=== PATIENT | male | born 1990 | race Two or more races ===

== ENCOUNTER 2023-10-17 11:14 | Observation (INO) ==
--- NOTE | 2023-10-17 11:31 | ED Triage Note ---
Date of Service October 17, 2023 Provider in Triage Author: Mei Estrella History of Present Illness This patient was briefly evaluated while in triage. An abbreviated physical exam was performed. This patient is a 33-year-old Male who presents to the ED for evaluation of reported left leg edema, no injury. Pt no personal hx blood clot but family history. Pain with walking. Physical Exam CONSTITUTIONAL: in no acute pain or distress, resting comfortably SKIN: pink, warm, dry CARDIAC: regular rate and rhythm RESPIRATORY: in no respiratory distress, lungs clear to auscultation ABDOMEN: no TTP MSK: 5/5 strength throughout NEURO: no neuro deficits, alert and oriented x 3 Initial orders for labs and / or imaging were placed and patient was placed in the waiting area until a bed is available. Please see further documentation for the full ED course.
--- NOTE | 2023-10-17 11:41 | Emergency Department Note ---
Impression & Plan Left leg swelling, DVT (deep venous thrombosis) ED Provider Note NAME: MINOR [id number] SAIRA AGE: 33 SEX: M : 1990 ARRIVES VIA: Walk-In INFORMANT: [Patient] ED PROVIDER(S): [Michael Gordon MD] CHIEF COMPLAINT: Leg pain HISTORY OF PRESENT ILLNESS: The patient is a 33-year-old male who states that for 5 days, he has noticed left calf pain and left leg swelling. The area behind his left knee feels full. There has been no erythema, no injury. No numbness or tingling. The patient states that he has never had a DVT. He is not short of breath. No fever or chills. The [facility] is [facility] He was sent for evaluation. The patient does carry history of hypertension, although, he is no longer taking medications for this diagnosis. PMHx/PSHx/Social Hx: See Below PHYSICAL EXAM: GENERAL: Patient is in no acute distress. EXTREMITIES: No cyanosis, full range of motion of all the joints without pain or difficulty. The patient's left lower extremity is edematous compared to the right. There is no contusion, no hematoma. No evidence for distal left lower extremity neurovascular compromise. NEUROLOGIC: Oriented x 3, no acute motor or sensory deficits, no focal weakness. DIFFERENTIAL DIAGNOSIS: Hematoma, Neil's cyst, cellulitis, sprain, strain, DVT, among others. EMERGENCY DEPARTMENT PROCEDURES: MEDICAL DECISION MAKING: There is a mild leukocytosis, this could be consistent with infection or the stress of his current situation. There was a normal hemoglobin and platelet count. No coagulopathy. No renal failure or significant electrolyte abnormalities. Left leg ultrasound shows an extensive DVT. On exam, the patient did have left lower extremity edema. There was no cellulitis. He was not short of breath. He was not tachycardic or hypoxic. The patient is in need of a hospital stay. Given the extent of the DVT, further workup, IV anticoagulation is needed. I spoke with the patient and the guards, I spoke with case management, the on- call hospitalist was consulted. Prior/Outside records/notes reviewed: Today's senior living note describing his presentation and the need for transfer to our hospital. Imaging/x-ray results per my interpretation: Chronic Medical/Social conditions affecting care: Currently incarcerated Care/Management discussed with: Case management, the on-call hospitalist. Level of care consideration(s): After review of the information above and other included data: --I believe the patient requires escalation of care to admission DISPOSITION: Admission Past Med/Surg History Medical History Hypertension Social History Smoking Status: Current every day smoker Preferred Language: [place] Feels Safe at Home: Yes Allergies Allergies Allergy/AdvReac Type Severity Reaction Status Date / Time No Known Allergies Allergy Verified 10/17/23 15:48 Home Meds Home Medications Medication Instructions Recorded Confirmed No Known Home Medications 10/17/23 10/17/23 Results & Data (ED) Vital Signs Vital Signs - 24 hr 10/17/23 11:30 10/17/23 14:12 Temperature 36.6 C Temperature Source Temporal Artery Scan Pulse Rate 81 Pulse Rate [Apical] 82 Pulse Rhythm Regular Pulse Rhythm [Apical] Regular Pulse Strength Normal Pulse Strength [Apical] Normal Respiratory Rate 20 19 Respiratory Effort / Characteristics Non-Labored Spontaneous Non-Labored Spontaneous Respiratory Depth Normal Normal Respiratory Pattern Regular Regular Blood Pressure 159/98 H Blood Pressure [Right Arm] 139/70 Blood Pressure Mean 118 Blood Pressure Mean [Right Arm] 93 Blood Pressure Position Sitting Pulse Oximetry 98 98 Oxygen Delivery Method Room Air Room Air Sepsis Recent Fever Within 48 Hours No Sepsis New/Unexplained Change in Mental Status No Sepsis Action Taken by Nursing No Action Required Home Medications Current Medication List: was personally reviewed by me Laboratory Data Attestation: I reviewed the patient's lab results. 10/17/23 14:08 10/17/23 15:33 Lab Results 10/17/23 Range/Units 14:08 WBC 11.18 H (4.8-10.8) K/ul RBC 5.17 (4.70-6.10) M/uL Hgb 15.7 (14.0-18.0) g/dl Hct 47.2 (42.0-52.0) % MCV 91.3 (80.0-100.0) fL MCH 30.4 (25.0-34.0) pg MCHC 33.3 (32.0-36.0) g/dL RDW Std Deviation 39.6 (36.4-46.3) fL RDW Coeff of Mason 11.9 (11.5-14.5) % Plt Count 241 (130-400) K/uL MPV 9.4 (9.4-12.4) fL PT Cancelled INR Cancelled APTT Cancelled PTT Ratio Cancelled Sodium 140 (136-145) mmol/L Potassium TNP Chloride 106 (98-107) mmol/L Carbon Dioxide 26 (21-32) mmol/L Anion Gap 8 (3-11) BUN 13 (6-23) mg/dl Creatinine 0.99 (0.6-1.4) mg/dl Est Cr Clr Drug Dosing 120.5 ml/min Est GFR ( Amer) 115.5 ml/min Est GFR (Non-Af Amer) 99.7 ml/min BUN/Creatinine Ratio 13.1 (10-20) Glucose 76 (70-99(Fasting)) mg/dl Calcium 9.4 (8.6-10.3) mg/dl Administered Medications Heparin Sodium/Dextrose (Heparin Sodium/Dextrose) 25,000 units in 500 mls @ 29 mls/hr IV .[id number]; Protocol Stop: 11/16/23 15:14 Last Admin: 10/17/23 15:42 Dose: 1,450 units/hr, 29 mls/hr Documented By: JESUSITA Co-signed By: MARCELLE Discontinued Medications Heparin Sodium (Porcine) (Heparin Sod (Porcine) 1000 Unit/Ml) 6,000 units IV NOW ONE Stop: 10/17/23 15:05 Last Admin: 10/17/23 15:41 Dose: 6,000 units Documented By: JESUSITA Co-signed By: MARCELLE Heparin Sodium/Dextrose (Heparin Iv Adult Wt-Based Standard W/ Initial Bolus Protocol) 1 each IV NOW STA; Protocol Stop: 10/17/23 14:50 Last Admin: 10/17/23 15:47 Dose: Not Given Documented By: JESUSITA Ioversol (Optiray 320 125ml) 119 ml IV ONCE ONE Stop: 10/17/23 16:09 Last Admin: 10/17/23 16:08 Dose: 119 ml Documented By: NOÉ Miscellaneous Information (Patient's Allergy Info Needs Entered) 1 each N/A NOW STA Stop: 10/17/23 14:53 Last Admin: 10/17/23 15:48 Dose: 1 each Documented By: [facility] Imaging Data Radiologist's Impression: Venous Doppler Study 10/17/23 11:31 US venous doppler LE LT CLINICAL HISTORY: Eval for DVT TECHNIQUE: Left lower extremity real-time compression venous ultrasound with Color Doppler imaging. Utilizing real-time ultrasonic imaging multiple real time high-resolution ultrasonic images with compression and noncompression maneuvers of the deep venous system in addition to color doppler imaging were performed from the common femoral vein through the proximal calf veins. COMPARISON: None available at the time of this dictation. FINDINGS/IMPRESSION: There is extensive deep venous thrombus extending from the proximal femoral vein through the calf veins and a branch from the popliteus vein. ACT 112: Negative or not required by law. Electronically signed by: Rolando Rawls M.D. 10/17/2023 1:[address] 10/17/23 14:18 CT abdomen pelvis veno w con CT DOSE: 1591.05 mGy.cm CLINICAL HISTORY: Extensive left DVT . Evaluate for iliac involvement. TECHNIQUE: Multiaxial CT images of the abdomen were performed following the intravenous administration of contrast to evaluate the major venous structures. 3-D/maximal intensity projection images in the sagittal and coronal planes were performed at the workstation by the radiologist for the CTA portion of the examination. A dose lowering technique was utilized adhering to the principles of ALARA. COMPARISON STUDY: Left leg venous Doppler 10/17/2023. FINDINGS: The lung bases are clear. No pneumoperitoneum. No pneumatosis. No acute fractures. There are right lower lobe segmental/subsegmental pulmonary emboli best seen image 1. No evidence for right-sided heart strain. The iliac veins and IVC appear patent. Thrombus is seen within the left superficial femoral vein on image 429. The bilateral common femoral veins are patent. The bladder is mildly distended. No bladder wall thickening. No pelvic free fluid or pelvic lymphadenopathy. Normal caliber abdominal aorta. No retroperitoneal lymphadenopathy. There is a single prominent anterior pericardial lymph node on image 24 measuring 12 mm no hepatic or splenic masses. The gallbladder, pancreas, and adrenal glands are unremarkable. Normal kidneys. No hydronephrosis. The main portal vein is patent. No bowel wall thickening or obstruction. A few colonic diverticula. No evidence for acute diverticulitis. Normal appendix. IMPRESSION: 1. The left superficial femoral vein thrombosis again noted. 2. The iliac veins and IVC appear patent. 3. Right lower lobe segmental/subsegmental pulmonary emboli. 4. A single mildly enlarged anterior pericardial lymph node. [address] follow-up recommended to ensure stability/resolution. ACT 112: Positive. There are findings on this exam that require communication between the performing entity and the patient following Patient Test Result Information Act ([place] Act 112) guidelines. Electronically signed by: Lalo Escobar M.D. 10/17/2023 4:37 PM Discharge Plan Visit Data Chief Complaint: Leg Injury/Pain Stated Complaint: LEFT LEG SWELLING ED Provider: Michael Gordon Discharge Problem: Left leg swelling, DVT (deep venous thrombosis) Patient Disposition: Admitted As Inpatient Condition: Good Discharge Instructions Interventions: ED Discharge Assessment Last Done: 10/17/23 16:59 Discharge Problem: DVT (deep venous thrombosis) Qualifiers: DVT location: lower extremity Affected thrombotic vein of extremity: u nspecified vein of extremity Chronicity: acute Laterality: left Qualified Code(s): I82.402 - Acute embolism and thrombosis of unspecified deep veins of left lower extremity
--- NOTE | 2023-10-17 13:31 | Ultrasound Report ---
US venous doppler LE LT CLINICAL HISTORY: Eval for DVT TECHNIQUE: Left lower extremity real-time compression venous ultrasound with Color Doppler imaging. U tilizing real-time ultrasonic imaging multiple real time high-resolution ultrasonic images with compr ession and noncompression maneuvers of the deep venous system in addition to color doppler imaging we re performed from the common femoral vein through the proximal calf veins. COMPARISON: None available at the time of this dictation. FINDINGS/IMPRESSION: There is extensive deep venous thrombus extending from the proximal femoral vein through the calf vei ns and a branch from the popliteus vein. ACT 112: Negative or not required by law. Electronically signed by: Rolando Rawls M.D. 10/17/2023 1:29 PM
--- NOTE | 2023-10-17 14:16 | History & Physical Report ---
Date of Service October 17, 2023 Assessment & Plan (1) Pulmonary embolism: Plan: Left calf pain and swelling began on Wednesday 10/11 Left lower extremity DVT revealed extensive DVT in the proximal femoral vein through the calf veins No recent trauma to the leg No hx of clots/DVTs Appears to be unprovoked; in the setting of everyday e-cigarette smoking; former tobacco cigarette smoker; 1/[address] venogram of the abdomen/pelvis ordered to assess for clot extension above the femoral vein Positive for RLL segmental subsubsegmental PE; clinically, no SOB, cough, or pleuritic CP Will put in for chest CTA in the morning Given family history, and unprovoked DVT/PE, will order hypercoagulable panel Echocardiogram ordered, pending Troponin ordered, pending Heparin IV standard dose with bolus started in the ED Acetaminophen as needed for pain A.m. CBC, BMP, mag (2) Left femoral vein DVT: Plan Disposition: Admit to [facility] telemetry Full code Regular diet VTE PPx: Heparin IV History of Present Illness Chief Complaint: Left leg swelling/pain Primary Care Provider: AGUSTINA Dozier is a 33-year-old male without significant PMH. He presented for left calf pain that first began on Wednesday 10/11. Patient began feeling muscle cramps in his left leg on Tuesday night, then woke up on Tuesday and could barely move it. He thought that he was having a sore muscle, but denies any recent strenuous exercise or injury/trauma to the leg. Leg pain and swelling worsened throughout the week, and by Sunday 10/15, patient was almost in tears with how painful it was. He rates the left lower leg pain as 9/10 constant pain that feels like his calf muscle is "ripping apart". He has tried taking ibuprofen, but this does not help. The pain is located specifically in his left calf, and does not radiate above the knee, or below the ankle. He denies any redness, but does note swelling. No personal history of blood clots, but he does note his grandmother had a history of blood clots. Patient does not take any medicine on a daily basis. He does note that he was sitting crosslegged around 3 weeks ago, and his left leg went numb. No numbness or tingling in the past week. No chest pain, pleuritic CP, or shortness of breath. Patient is a current everyday e-cig arette smoker; half a cigarette per day (which is equivalent to 1/2 PPD); former tobacco cigarette smoker. NKDA. Patient's vitals are stable at time of admission; SpO2 98% on RA. ED course: ROS: Patient endorses chills, and left calf pain/swelling. Patient denies fever, sweating, dizziness/lightheadedness, DALEY, chest pain, pleuritic CP, SOB, cough, hemoptysis, abdominal pain, N/V/D, or numbness/ tingling in the leg. 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 Current Living Situation Comment: [facility] Other Information That Helps Us Care for You: No Feels Safe at Home: Yes Safety Concerns: Feels Safe At This Time Review of Systems Review of Systems: See HPI above Physical Exam Physical Exam: General: no acute distress; non-toxic appearing; well-nourished; cooperative; 98% SpO2 on RA HEENT: normocephalic, atraumatic; no scleral icterus; PERRLA; moist mucus membrane; vision and hearing grossly intact Neck: supple; no lymphadenopathy; trachea midline Skin: warm, dry without signs of tenting; no cyanosis; no rashes, bruising, lesions, or erythema noted CV: chest wall NTP; RRR; S1/S2 normal; no murmurs/rubs/gallops; pulses intact and symmetric at radial, DP, and PT Lungs: no acute respiratory distress; symmetrical chest wall expansion; clear breath sounds across all lung [place] w/o adventitious sounds; no wheezing ABD: Soft, NTP; BS present; no rebound/guarding; no distention MSK: no tics or fasciculations; significant swelling of the left calf when compared to the right; nonerythematous; left calf and medial left ankle are TTP Neuro: A&Ox3; normal mood and affect; fluent speech; no focal deficits; sensation grossly intact in the LEs b/l Results & Data Results & Data Vital Signs (Past 12 Hours) Vital Signs Temp Pulse Pulse Resp BP BP Pulse Ox 10/17/23 14:12 82 19 139/70 98 10/17/23 11:30 36.6 C 81 20 159/98 H 98 O2 Del Method 10/17/23 14:12 Room Air 10/17/23 11:30 Room Air Diagnostic Findings Venous Doppler Study 10/17/23 11:31 US venous doppler LE LT CLINICAL HISTORY: Eval for DVT TECHNIQUE: Left lower extremity real-time compression venous ultrasound with Color Doppler imaging. Utilizing real-time ultrasonic imaging multiple real time high-resolution ultrasonic images with compression and noncompression maneuvers of the deep venous system in addition to color doppler imaging were performed from the common femoral vein through the proximal calf veins. COMPARISON: None available at the time of this dictation. FINDINGS/IMPRESSION: There is extensive deep venous thrombus extending from the proximal femoral vein through the calf veins and a branch from the popliteus vein. ACT 112: Negative or not required by law. Electronically signed by: Rolando Rawls M.D. 10/17/2023 1:29 PM Code Status & VTE Plan Code Status Full code VTE Prophylaxis Plan VTE Prophylaxis will be ordered: Yes Supervising Physician Co-Signing Physician Notes I personally saw and examined the patient. I independently reviewed the labs, imaging, problem list, medication list, past medical history and family history. I verified all reis points and agree with Lalo Everett PA-C with the following exceptions and/or additions: 33-year-old male presents to the ER with left calf pain since Tuesday with associated swelling. He has a significant family history of blood clots with his grandmother dying at an early age from pulmonary emboli. He has never had a DVT or pulmonary emboli in the past. He smokes daily. He denies any chest pain or shortness of breath O/E HS RRR, no murmurs, Chest CTAB, Left leg > right leg circumference A/P DVT/PE - CT abdomen pelvis venogram taken due to extent of clot burden concern for compression in the pelvis. This showed incidental pulmonary emboli and no compression of concern. Since this is unprovoked with a concerning family history recommend hypercoagulable workup which will be started tomorrow but should be completed as when off all anticoagulation. He has already had a CT scan today with contrast, no tachycardia/hypoxia, negative troponin, and asymptomatic will get CT for PE tomorrow to space out contrast as little concern for significant clot burden but would likely change how long we observe him for in hospital prior to switching to oral anticoagulation. Recommend 6 months of treatment given unprovoked. If he continues to smoke beyond this he should be placed on a prophylaxis dose of anticoagulation. If he stop smoking and hypercoagulable workup is negative he can likely go without anticoagulation but vigilance on recurrent symptoms. PG Care Time/CCT Total # of Minutes Spent Total Time Spent with Patient: Total time spent is greater than 50% in coordination of care (as documented) at patient's floor/unit and/or counseling patient: [place] [address] INT INP/OBS CARE 2/55MIN Patient Type New Medical Decision Making Moderate Complexity Diagnoses Pulmonary embolism I26.99 Left femoral vein DVT I82.412
[2023-10-17 14:53] LABS: Hematocrit (blood only) 47.2 % (42.0-52.0); Hemoglobin 15.7 g/dl (14.0-18.0); Mean Corpuscular Hemoglobin 30.4 pg (25.0-34.0); Mean Corpuscular Hgb Conc 33.3 g/dL (32.0-36.0); Mean Corpuscular Volume 91.3 fL (80.0-100.0); Mean Platelet Volume 9.4 fL (9.4-12.4); Platelet Count 241 K/uL (130-400); RDW Coefficient of Variation 11.9 % (11.5-14.5); RDW Standard Deviation 39.6 fL (36.4-46.3); Red Blood Count 5.17 M/uL (4.70-6.10); White Blood Count 11.18 K/ul (4.8-10.8)
[2023-10-17 15:06] LABS: Anion Gap 8 (3-11); BUN Creatinine Ratio 13.1 (10-20); Blood Urea Nitrogen 13 mg/dl (6-23); Calcium 9.4 mg/dl (8.6-10.3); Carbon Dioxide 26 mmol/L (21-32); Chloride 106 mmol/L (98-107); Creatinine Clr Calc Pharmacy 120.5 ml/min; Est GFR (African American) 115.5 ml/min; Est GFR (Non-African American) 99.7 ml/min; Glucose 76 mg/dl (70-99(Fasting)); Sodium 140 mmol/L (136-145)
[2023-10-17] MEDS: HEPARIN SOD (PORCINE) 1000 UNIT/ML IV ONE (15:41)
[2023-10-17] MEDS: HEPARIN SODIUM/DEXTROSE 25,000 UNITS/500 ML BAG IV SCH (15:42)
[2023-10-17] MEDS: Heparin IV Adult Wt-Based Standard w/ INITIAL Bolus Protocol IV STA (15:47)
[2023-10-17] MEDS: Patient's ALLERGY Info needs ENTERED STA (15:48)
[2023-10-17] MEDS: OPTIRAY 320 125ml IV ONE (16:08)
[2023-10-17 16:10] LABS: Partial Thromboplastin Time 27 Seconds (21-31); Prothrombin Time 10.9 Seconds (9.0-12.0)
[2023-10-17 16:19] LABS: Potassium 4.6 mmol/L (3.5-5.1)
--- NOTE | 2023-10-17 16:38 | CT Scan Report ---
CT abdomen pelvis veno w con CT DOSE: 1591.05 mGy.cm CLINICAL HISTORY: Extensive left DVT . Evaluate for iliac involvement. TECHNIQUE: Multiaxial CT images of the abdomen were performed following the intravenous administratio n of contrast to evaluate the major venous structures. 3-D/maximal intensity projection images in the sagittal and coronal planes were performed at the workstation by the radiologist for the CTA portion of the examination. A dose lowering technique was utilized adhering to the principles of ALARA. COMPARISON STUDY: Left leg venous Doppler 10/17/2023. FINDINGS: The lung bases are clear. No pneumoperitoneum. No pneumatosis. No acute fractures. There ar e right lower lobe segmental/subsegmental pulmonary emboli best seen image 1. No evidence for right-s ided heart strain. The iliac veins and IVC appear patent. Thrombus is seen within the left superficia l femoral vein on image 429. The bilateral common femoral veins are patent. The bladder is mildly dis tended. No bladder wall thickening. No pelvic free fluid or pelvic lymphadenopathy. Normal caliber ab dominal aorta. No retroperitoneal lymphadenopathy. There is a single prominent anterior pericardial l ymph node on image 24 measuring 12 mm no hepatic or splenic masses. The gallbladder, pancreas, and ad renal glands are unremarkable. Normal kidneys. No hydronephrosis. The main portal vein is patent. No bowel wall thickening or obstruction. A few colonic diverticula. No evidence for acute diverticulitis . Normal appendix. IMPRESSION: 1. The left superficial femoral vein thrombosis again noted. 2. The iliac veins and IVC appear patent. 3. Right lower lobe segmental/subsegmental pulmonary emboli. 4. A single mildly enlarged anterior pericardial lymph node. [address] follow-up recommended t o ensure stability/resolution. ACT 112: Positive. There are findings on this exam that require communication between the performing entity and the patient following Patient Test Result Information Act ([place] Act 112) guidelines. Electronically signed by: Lalo Escobar M.D. 10/17/2023 4:37 PM
[2023-10-17] MEDS ORDERED: ACETAMINOPHEN 325 MG TAB PO PRN (17:19)
[2023-10-17 18:16] LABS: Troponin I High Sensitivity 3.9 pg/ml (0-20)
[2023-10-17 23:48] LABS: ANTI-Xa, UFH(UnfractionatedHep 0.72 IU/ml (0.3-0.7)
[2023-10-18 06:16] LABS: Basophils # (auto) 0.04 K/uL (0.00-0.20); Basophils % (auto) 0.5 %; Eosinophils # (auto) 0.29 K/uL (0.00-0.50); Eosinophils % (auto) 3.3 %; Hematocrit (blood only) 41.6 % (42.0-52.0); Hemoglobin 14.1 g/dl (14.0-18.0); Immature Granulocytes # (auto) 0.06 K/uL (0.01-0.20); Immature Granulocytes % (auto) 0.7 %; Lymphocytes # (auto) 3.17 K/uL (1.20-3.40); Lymphocytes % (auto) 36.3 %; Mean Corpuscular Hemoglobin 30.3 pg (25.0-34.0); Mean Corpuscular Hgb Conc 33.9 g/dL (32.0-36.0); Mean Corpuscular Volume 89.3 fL (80.0-100.0); Mean Platelet Volume 8.9 fL (9.4-12.4); Monocytes # (auto) 0.59 K/uL (0.11-0.59); Monocytes % (auto) 6.8 %; Neutrophils # (auto) 4.59 K/uL (1.40-6.50); Neutrophils % (auto) 52.4 %; Platelet Count 235 K/uL (130-400); RDW Coefficient of Variation 11.9 % (11.5-14.5); RDW Standard Deviation 38.4 fL (36.4-46.3); Red Blood Count 4.66 M/uL (4.70-6.10); White Blood Count 8.74 K/ul (4.8-10.8)
[2023-10-18 06:18] LABS: ANTI-Xa, UFH(UnfractionatedHep 0.51 IU/ml (0.3-0.7)
[2023-10-18 06:31] LABS: Calcium 8.6 mg/dl (8.6-10.3); Creatinine Clr Calc Pharmacy 111.5 ml/min; Est GFR (African American) 105.2 ml/min; Est GFR (Non-African American) 90.7 ml/min; Potassium 4.2 mmol/L (3.5-5.1)
--- NOTE | 2023-10-18 09:36 | XCELERA ---
[id number]
[2023-10-18] MEDS: APIXABAN 5 MG TABLET PO SCH (12:19)
[2023-10-18] MEDS: OPTIRAY 320 125ml IV ONE (14:05)
--- NOTE | 2023-10-18 14:25 | CT Scan Report ---
CHEST CTA for PULMONARY ARTERIES CT DOSE: 840.13 mGy.cm HISTORY: Abnormal abdomen and pelvis CT. Assess for pulmonary emboli. TECHNIQUE: Multiaxial CT images of the chest were performed following the intravenous administration of contrast to evaluate the pulmonary arteries. 3D/Maximal intensity projection images were also obta ined. Sagittal and coronal reformations were also reviewed. A dose lowering technique was utilized a dhering to the principles of ALARA. COMPARISON STUDY: Abdomen and pelvis CT 10/17/2023. FINDINGS: Normal caliber thoracic aorta with no evidence for a dissection. Slight flattening of the i nterventricular septum which could represent developing right-sided heart strain. Small linear fillin g defect seen within the segmental branches of the left lower lobe pulmonary arteries consistent with pulmonary emboli. Multiple pulmonary emboli also seen within the distal right main pulmonary artery and extending into the right upper and lower lobar pulmonary arteries as well as the right lower lobe segmental/subsegmental pulmonary arteries. No mediastinal or hilar lymphadenopathy. No pleural or pe ricardial effusions. No acute fractures. No pneumothorax. Mild emphysema is noted. The central pulmon emil arteries are patent. Mild dependent changes seen within the lungs posteriorly. No focal lung cons olidations to suggest a pneumonia or pulmonary infarct. Linear densities within the right lower lobe favor subsegmental atelectasis. IMPRESSION: 1. Multiple bilateral pulmonary emboli most pronounced on the right as described above. 2. There is flattening of the interventricular septum suggestive of mild right-sided heart strain. 3. Mild emphysema. ACT 112: Negative or not required by law. Electronically signed by: Lalo Escobar M.D. 10/18/2023 2:24 PM
--- NOTE | 2023-10-22 14:51 | Discharge Summary ---
Date of Service October 18, 2023 Admission HPI Per Admitting Provider Jacoby is a 33-year-old male without significant PMH. He presented for left calf pain that first began on Wednesday 10/11. Patient began feeling muscle cramps in his left leg on Tuesday night, then woke up on Tuesday and could barely move it. He thought that he was having a sore muscle, but denies any recent strenuous exercise or injury/trauma to the leg. Leg pain and swelling worsened throughout the week, and by Sunday 10/15, patient was almost in tears with how painful it was. He rates the left lower leg pain as 9/10 constant pain that feels like his calf muscle is "ripping apart". He has tried taking ibuprofen, but this does not help. The pain is located specifically in his left calf, and does not radiate above the knee, or below the ankle. He denies any redness, but does note swelling. No personal history of blood clots, but he does note his grandmother had a history of blood clots. Patient does not take any medicine on a daily basis. He does note that he was sitting crosslegged around 3 weeks ago, and his left leg went numb. No numbness or tingling in the past week. No chest pain, pleuritic CP, or shortness of breath. Patient is a current everyday e- cigarette smoker; half a cigarette per day (which is equivalent to 1/2 PPD); former tobacco cigarette smoker. NKDA. Patient's vitals are stable at time of admission; SpO2 98% on RA. ED course: ROS: Patient endorses chills, and left calf pain/swelling. Patient denies fever, sweating, dizziness/lightheadedness, DALEY, chest pain, pleuritic CP, SOB, cough, hemoptysis, abdominal pain, N/V/D, or numbness/tingling in the leg. Principal Diagnosis Acute pulmonary embolism Discharge Exam General: no acute distress; HEENT: normocephalic, atraumatic; no scleral icterus; PERRLA; moist mucus membrane; vision and hearing grossly intact CV: chest wall NTP; RRR; S1/S2 normal; no murmurs/rubs/gallops; pulses intact and symmetric at radial, DP, and PT Lungs: no acute respiratory distress; symmetrical chest wall expansion; clear breath sounds across all lung [place] w/o adventitious sounds; no wheezing ABD: Soft, NTP; BS present; no rebound/guarding; no distention MSK: decreased swelling of left calf Neuro: A&Ox3; normal mood and affect; fluent speech; no focal deficits; sensation grossly intact in the LEs b/l Discharge Data Allergies Allergy/AdvReac Type Severity Reaction Status Date / Time No Known Allergies Allergy Verified 10/17/23 15:48 Consultations 10/17/23 14:21 ED Decision to Admit Stat Ordered Studies 10/17/23 11:31 US venous doppler LE LT Urgent 10/17/23 14:18 CT abdomen pelvis veno w con Stat 10/18/23 07:00 CT for pulmonary embolism PE [CT angio chest PE protocol] Routine Hospital Course (1) Pulmonary embolism: Left calf pain and swelling began on Wednesday 10/11 Left lower extremity DVT revealed extensive DVT in the proximal femoral vein through the calf veins No recent trauma to the leg No hx of clots/DVTs Appears to be unprovoked; in the setting of everyday e-cigarette smoking; former tobacco cigarette smoker; 1/[address] venogram of the abdomen/pelvis ordered to assess for clot extension above the femoral vein Positive for RLL segmental subsubsegmental PE; clinically, no SOB, cough, or pleuritic CP CT chest: showed bilateral subsegmental PE Given family history, will order hypercoagulable panel This could be considered provoked given his sedentary lifestyle now that patient is incarcerated. will discharge on Eliquis, if provider from correctional facility agrees that PE is provoked, patient would be on 6 months of anticoagulation. If unprovoked, lifelong. (2) Left femoral vein DVT: as above Total Time Total Time Spent Total Time Spent (In Minutes): 32 Discharge Plan Discharge Items [facility] Disposition: [facility] Reason For Visit: LEFT CALF PAIN Discharge Diagnosis: Left calf pain Condition on Discharge: Good Activity: Resume your previous activity Non-emergency contact: Primary Care Provider Call non-emergency contact if: you have any medication questions Follow-up/Referrals: Jonathan BERRIOS [Primary Care Provider] - Diet: Regular Addtl Attending Provider Instructions: You have been hospitalized for an acute medical problem: acute pulmonary embolism. During your stay at [facility], we have made an effort to correct the problem that brought you to the hospital while keeping you as comfortable as possible. Blood thiners were used to bring your condition under control and your discharge instructions will include directions for any medications you should take after leaving the hospital. Please do not miss taking a dose of Eliquis. Pending Studies at Discharge: No Stand-Alone Forms: [facility] Skilled Items Patient informed of condition?: Yes Discharge Level of Care: Other Communicable Disease: No Discharge Prognosis: Stable Lines: None Urinary Catheter: No Medications and DC Order Prescriptions: New Eliquis 5 mg Tablet 10 mg PO BID Qty: 73 0RF Rx Instructions: 10 mg twice daily for 13 doses days followed by 5 mg twice daily. Discharge Orders: Discharge Order (Routine); Ordered 10/18/23 Ordered By: [place] Admission Data Admit Date/Time: 10/17/23 17:42 Attending Provider: Riley Hunetr Admit Provider: Riley Hunter Primary Care Provider: Jonathan BERRIOS Other Providers: Riley Hunter Other Interventions: Discharge Summary Assessment (RN) Last Done: 10/18/23 13:36 Coding Level of Care Code 12705 INP/OBS DISCH >30 MIN Diagnoses Pulmonary embolism I26.99 Left femoral vein DVT I82.412
[2023-10-26 14:27] LABS: Factor 5 Mutation NEGATIVE
== END 2023-10-18 14:24 | DRG 299 ==
LOC: EDINP 11:14 → ED 11:14 → 2N 16:59